=== PATIENT | female | born 1975 | race Caucasian/White ===

== ENCOUNTER 2024-04-09 06:29 | Day surgery (SDC) | payer BC, SELFPAY | END 2024-04-09 12:59 | disposition home or self-care (01) | LOC: GI 06:29 | PROVIDERS: ATTENDING PHYSICIAN Internal Medicine Gastroenterology | DX: Z12.11 Encounter for screening for malignant neoplasm of colon (principal); Q43.8 Other specified congenital malformations of intestine; K62.89 Other specified diseases of anus and rectum; K29.50 Unspecified chronic gastritis without bleeding; Q39.4 Esophageal web; K31.89 Other diseases of stomach and duodenum; R13.10 Dysphagia, unspecified; R14.0 Abdominal distension (gaseous); T14.90XA Injury, unspecified, initial encounter; Y83.8 Other surgical procedures as the cause of abnormal reaction of the patient, or of later complication, without mention of misadventure at the time of the procedure | CPT/HCPCS: 43239; G0121; 88305; 88342 ==